=== PATIENT | male | born 1970 | race Caucasian/White ===

== ENCOUNTER 2017-07-15 12:43 | Emergency (ER) | payer BC ==
--- NOTE | 2017-07-15 14:32 | UC ---
Hand/Wrist HPI - HPI Summary HPI Summary: Patient presents with an infected nail bed of the left thumb. He states he believes he originally clipped it too short with clipper, but since then the thumb has been swollen, and in the morning he can express some puss from under it. He states he has been soaking it as well. He states that there is throbbing pain, that now radiates up his thumb. He states the redness is located at the proximal, medial nail edge, with a small collection of puss under the proximal lateral nail as well. - History Of Current Complaint Hx Obtained From: Patient Onset/Duration: Gradual Onset, Lasting Days Severity Initially: Moderate Severity Currently: Moderate Pain Intensity: 4 Character Of Pain: Throbbing, Burning Aggravating Factor(s): Other - touch, pressure Alleviating Factor(s): Nothing Associated Signs And Symptoms: Positive: Negative <Caro Kirkland - Last Filed: 07/15/17 15:28> <Windy Emerson - Last Filed: 07/15/17 15:33> - History Of Current Complaint Chief Complaint: UCUpperExtremity Stated Complaint: RED SWOLLEN THUMB Time Seen by Provider: 07/15/17 14:18 - Allergies/Home Medications Allergies/Adverse Reactions: Allergies Allergy/AdvReac Type Severity Reaction Status Date / Time No Known Allergies Allergy Verified 07/15/17 13:13 PMH/Surg Hx/FS Hx/Imm Hx Previously Healthy: Yes - Surgical History Surgical History: None - Family History Known Family History: Positive: None - Social History Occupation: Employed Full-time Lives: Alone Alcohol Use: Rare Substance Use Type: None Smoking Status (MU): Never Smoked Tobacco - Immunization History Most Recent Tetanus Shot: out of date <Caro Kirkland - Last Filed: 07/15/17 15:28> Review of Systems Constitutional: Negative Skin: Negative Eyes: Negative ENT: Negative Respiratory: Negative Cardiovascular: Negative Gastrointestinal: Negative Genitourinary: Negative Motor: Negative Neurovascular: Negative Musculoskeletal: Other: - painful, swollen left nail edge Neurological: Negative Psychological: Negative Is Patient Immunocompromised?: No All Other Systems Reviewed And Are Negative: Yes <Caro Kirkland - Last Filed: 07/15/17 15:28> Physical Exam Triage Information Reviewed: Yes Appearance: Well-Appearing Vital Signs: Initial Vital Signs Temp 98.3 F 07/15/17 13:08 Pulse 86 07/15/17 13:08 Resp 20 07/15/17 13:08 BP 138/78 07/15/17 13:08 Pulse Ox 100 07/15/17 13:08 Vital Signs Reviewed: Yes Eye Exam: Normal ENT Exam: Normal Neck exam: Normal Neck: Positive: 1 Respiratory Exam: Normal Cardiovascular Exam: Normal Musculoskeletal Exam: Other - left tumb nail proximal, medial nail with erythma , edema, induraion, no flucuance noted. small amount of light yellow collection of fluid under the poximal lateral nail edge. Skin Exam: Normal <Caro Kirkland - Last Filed: 07/15/17 15:28> Vital Signs: Initial Vital Signs Temp 98.3 F 07/15/17 13:08 Pulse 86 07/15/17 13:08 Resp 20 07/15/17 13:08 BP 138/78 07/15/17 13:08 Pulse Ox 100 07/15/17 13:08 <Windy Emerson - Last Filed: 07/15/17 15:33> Hand/Wrist Course/Dx - Course Course Of Treatment: Patient presents with an indurated paronccyia, xrays were obtained and were negative for any obvious osteomylitis, which was reviewed with the patient/. He was started on augmentin 500 mg tid. and referred to Dr. Martines tomorrow at 1p.m. I attempted to I=D the area but there was no collection of puss, just frnk red blood drained from the area. A DSD was applied and he was discharged home in stable conditon. - Differential Dx/Diagnosis Differential Diagnosis/HQI/PQRI: Paronychia Provider Diagnoses: paronchia <Caro Kirkland - Last Filed: 07/15/17 15:28> Discharge <Caro Kirkland - Last Filed: 07/15/17 15:28> <Windy Emerson - Last Filed: 07/15/17 15:33> - Discharge Plan Condition: Stable Disposition: HOME Prescriptions: Amoxicillin/Clavulanate TAB* [Augmentin TAB 500 mg*] 500 mg PO TID #30 tab Patient Education Materials: Paronychia (ED) Referrals: Rivka Garber MD [Primary Care Provider] - Jennifer Martines MD [Medical Doctor] - Additional Instructions: I made an appointment for you with Dr. Martines tomorrow at 1 p.m. Images Hands: 1 - area of induration. <Caro Kirkland - Last Filed: 07/15/17 15:28> Attestation Statement User Type: Provider - I was available for consult. This patient was seen by the CARL[facility]. The patient was not presented to, seen by, or examined by me. -Hector <Windy Emerson - Last Filed: 07/15/17 15:33>
[2017-07-15] MEDS ORDERED: Lidocaine 1% MPF* 2 ML VIAL INJ ONE ×2 (14:41→15:02)
--- NOTE | 2017-07-15 14:50 | RAD ---
HISTORY: Infection under her left thumb nail COMPARISONS: None VIEWS: 3, Frontal, lateral, and oblique views of the first digit of the left hand FINDINGS: BONE DENSITY: Normal. BONES: There is no displaced fracture. There is no appreciable erosion or periosteal reaction. JOINTS: There is no arthropathy. ALIGNMENT: There is no dislocation. SOFT TISSUES: Unremarkable. OTHER FINDINGS: None. IMPRESSION: NO APPRECIABLE EROSION OR PERIOSTEAL REACTION. PLAIN FILM FINDINGS OF OSTEOMYELITIS ARE RELATIVELY LATE FINDINGS. IF THERE IS PERSISTENT CLINICAL CONCERN FOR OSTEOMYELITIS, RECOMMEND CORRELATION WITH FOLLOWUP IMAGING, THREE-PHASE BONE SCANNING, WHITE BLOOD CELL SCAN, AND/OR MRI OF THE AFFECTED REGION.
[2017-07-15 15:23] VITALS: BP 144/81
--- NOTE | 2017-07-16 07:32 | UC ---
- Progress Note Progress Note: wound 3+ cocci gram + on augmentin await sensitivities no change nesha 07/16/2017
--- NOTE | 2017-07-17 16:39 | UC ---
- Progress Note Progress Note: Spoke with Patient--patient states his thumb is getting better-he saw Dr. Martines yesterday--- and was instructed to continue antibiotic and follow up if needed-- Sensitivities are still pending-patient on Augmentin-Reviewed with Dr. Peñaloza no changes
== END 2017-07-15 15:35 | disposition home or self-care (01) ==
LOC: UCEAST 12:43
DX: L03.012 Cellulitis of left finger (principal); B96.89 Other specified bacterial agents as the cause of diseases classified elsewhere
CPT/HCPCS: 87070; 87077; 87186; 87205; 99212; G0463

== ENCOUNTER 2018-08-12 08:35 | Emergency (ER) | payer BC ==
[2018-08-12 09:00] VITALS: BP 113/65
== END 2018-08-12 09:54 | disposition left against medical advice (07) ==
LOC: UCEAST 08:35
DX: Z53.21 Procedure and treatment not carried out due to patient leaving prior to being seen by health care provider (principal)